=== PATIENT | male | born 1950 | race African-American/Black ===

== ENCOUNTER 2022-09-21 08:39 | Outpatient (CLI) | payer MEDICARE, BC | END 2022-09-21 08:40 | disposition home or self-care (01) | LOC: CSHCT 08:39 | PROVIDERS: ATTEND Internal Medicine Gastroenterology | DX: K58.9 Irritable bowel syndrome, unspecified (principal); K21.9 Gastro-esophageal reflux disease without esophagitis; R63.4 Abnormal weight loss; K59.09 Other constipation; R10.33 Periumbilical pain; K22.9 Disease of esophagus, unspecified; N28.1 Cyst of kidney, acquired; Z90.5 Acquired absence of kidney; K57.30 Diverticulosis of large intestine without perforation or abscess without bleeding | CPT/HCPCS: 71046; 74177; 82565 ==

== ENCOUNTER 2024-12-17 14:04 | Emergency (ER) | payer MEDICARE, OTHER ==
[2024-12-17] MEDS ORDERED: Ketorolac Tromethamine 30 MG (1 mL) VIAL ONE (14:19)
== END 2024-12-17 14:32 | disposition home or self-care (01) ==
LOC: CSHERS 14:04
DX: M54.42 Lumbago with sciatica, left side (principal); E11.9 Type 2 diabetes mellitus without complications; I10 Essential (primary) hypertension; E78.5 Hyperlipidemia, unspecified
CPT/HCPCS: 96372; 99283; J1885